=== PATIENT | female | born 1965 | race Caucasian/White ===

== ENCOUNTER → 2018-01-11 | Day surgery (SDC) | payer OTHER ==
[~2018-01-11] MED LIST: EFFEXOR PO; FENTANYL CITRATE/PF 100MCG/2 ML INJ ONE; HYOSCYAMINE SULFATE 0.5 MG/ML INJ ONE; LIDOCAINE HCL 2% LOCAL INJ 5 ML SDV VIAL INJ ONE; LISINOPRIL10 MG PO; MIDAZOLAM HCL 2 MG/2 ML VIAL ONE; PROPOFOL IV EMULSION 10 MG/ML 50 ML VIAL ONE; [UNRECOGNIZED DRUG - OTHER]; [UNRECOGNIZED DRUG - OTHER] PO
--- NOTE | 2018-01-11 12:08 | Operative Report ---
DATE OF PROCEDURE: January 11, 2018 REFERRING PHYSICIAN: Dr. Chapo Sun. PROCEDURE PERFORMED: Colonoscopy and polypectomy. INDICATIONS FOR COLONOSCOPY: Personal history of colon polyps, colorectal cancer screening. MEDICATION: Patient was done under MAC. Please see anesthesiologist's note. PROCEDURE: With the patient in left lateral decubitus position, the flexible fiberoptic Olympus colonoscope was inserted into the rectum with ease, advanced all the way to the cecum. The scope was then withdrawn slowly. Mucosa overlying the cecum, ascending, transverse, descending other than for scattered diverticular disease appeared to be within normal limits. Additional diverticulosis was also noted in the sigmoid colon. Two polyps were hot biopsied from the sigmoid colon, 4 polyps were hot biopsied from the rectum. The scope was then retroflexed into the distal rectum and small internal hemorrhoids were noted, none of which was actively bleeding. Scope was then straightened out and was subsequently withdrawn. Patient tolerated the procedure well. IMPRESSION 1. Diverticulosis. 2. Sigmoid colon polyps times 2, hot biopsied. 3. Rectal polyps times 4, hot biopsied. PLAN: Follow up histology. Initiate high-fiber, low-fat diet. Initiate high-fiber supplement. Patient might benefit from a followup colonoscopy in 3 years. Job#: [id number] RAF cc:DR. CHAPO SUN
--- OUTSIDE RECORDS SUMMARY | 2018-01-13 11:13 | XMS REPORT | Clinical Summary ---
Author Author [employer] Organization [employer] Address Unknown Phone Unavailable Care Team Providers Care Community Services Coordinator Name Role Phone Chapo Robertson DO PCP Allergies No Known Allergies Current Medications Prescription Sig. Disp. Refills Start End Date Status Date lisinopril TK 1 T PO ONCE A DAY 0 07/17/19 Active (PRINIVIL,ZESTRIL) 20 mg 18 tablet venlafaxine 225 MG tablet TK 1 T PO ONCE D 2 07/17/19 Active extended release 24hr 24 18 hr tablet naproxen sodium (ANAPROX) TK 1 T PO Q 12 H WF OR 0 08/01/19 Active 550 MG tablet MILK PRN 18 Active Problems Problem Noted Date Iliotibial band syndrome 08/05/2017 Encounters Date Type Specialty Care Team Description 10/31/2017 Office Visit Sports Medicine Mickey Hairston MD Sprain of hip, unspecified laterality, initial encounter (Primary Dx) 09/16/2017 Office Visit Sports Mickey Gonzalez MD Iliotibial band syndrome, unspecified laterality (Primary Dx); Right hip pain; Left hip pain 08/05/2017 Office Visit Sports Mickey Gonzalez MD Iliotibial band syndrome, unspecified laterality (Primary Dx); Right hip pain; Left hip pain after 01/12/2017 Family History Medical History Relation Name Comments No Known Problems Father No Known Problems Mother Relation Name Status Comments Father Mother Social History Tobacco Use Types Packs/Day Years Used Date Current Every Day Smoker Alcohol Use Drinks/Week oz/Week Comments No Sex Assigned at Date Recorded Not on file Last Filed Vital Signs Not on file Plan of Treatment Health Maintenance Due Date Last Done Comments CERVICAL CANCER SCREENING 12/20/1984 BREAST CANCER SCREENING 12/20/2013 COLON CANCER SCREENING 12/20/2013 SHINGRIX VACCINE (#1) 12/20/2013 INFLUENZA VACCINE 10/23/2017 Procedures Procedure Name Priority Date/Time Associated Diagnosis Comments XR HIP 3-4 VIEWS Routine 08/05/2017 Sprain of hip, Results for this BILATERAL 2:26 PM CDT unspecified laterality, procedure are in the initial encounter results section. after 01/12/2017 Results * XR Hip 3-4 Views Bilateral (08/05/2017 2:26 PM) Narrative Performed At [facility] Right hip 3 views: Normal joint spaces with no obvious fractures or dislocations Left hip 3 views: Normal joint spaces with no obvious fractures or dislocations Performing Organization [facility] Phone [facility] [id number] [place] [address] after 01/12/2017 Insurance Payer Benefit Subscriber ID Type Phone Address Plan / Group AETNA AETNA xxxxxxxxxx HMO HMO,POS,EP O, MC/EC
== END | disposition home or self-care (01) ==
LOC: OR 06:51
PROVIDERS: ATTEND Internal Medicine Gastroenterology
DX: Z12.11 Encounter for screening for malignant neoplasm of colon (principal); K63.5 Polyp of colon; K57.30 Diverticulosis of large intestine without perforation or abscess without bleeding; K21.9 Gastro-esophageal reflux disease without esophagitis; K62.1 Rectal polyp; I10 Essential (primary) hypertension; Z86.010 Personal history of colon polyps; F32.9 Major depressive disorder, single episode, unspecified; Z01.810 Encounter for preprocedural cardiovascular examination
CPT/HCPCS: 45384; 93005; J1980; J2001; J2250

== ENCOUNTER → 2021-08-04 | Day surgery (SDC) | payer BC, OTHER ==
[~2021-08-04] MED LIST changes: +BLACK ELDERBER1 EACH PO; +HYDROXYZINE HCL25 MG PO; +MULTI-VITAMIN1 EACH PO; +POVIDONE IODINE 0.05% 0.05 % ML PO ONE; +PROPOFOL IV EMULSION 10 MG/ML 20 ML VIAL ONE; -PROPOFOL IV EMULSION 10 MG/ML 50 ML VIAL ONE; +PROTONIX20 MG PO; +TURMERIC538 MG PO; +VENLAFAXINE HCL75 MG PO; +VITAMIN B122500 MCG PO; +[UNRECOGNIZED DRUG - OTHER] PO
[2021-08-04 15:00] VITALS: BP 103/70
== END | disposition home or self-care (01) ==
LOC: OR 08:00
PROVIDERS: ATTEND Internal Medicine Gastroenterology
DX: Z09 Encounter for follow-up examination after completed treatment for conditions other than malignant neoplasm (principal); Z86.010 Personal history of colon polyps; K57.30 Diverticulosis of large intestine without perforation or abscess without bleeding; K64.8 Other hemorrhoids; K21.9 Gastro-esophageal reflux disease without esophagitis; I10 Essential (primary) hypertension; F41.9 Anxiety disorder, unspecified; F32.A Depression, unspecified; F17.210 Nicotine dependence, cigarettes, uncomplicated; Z01.810 Encounter for preprocedural cardiovascular examination; Z01.812 Encounter for preprocedural laboratory examination; Z20.822 Contact with and (suspected) exposure to COVID-19; Z86.16 Personal history of COVID-19
CPT/HCPCS: 45378; 93005; J1980; J2001; J2250; J2704; J3010; U0002